=== PATIENT | male | born 1945 | race Caucasian/White ===

== ENCOUNTER 2016-12-23 00:14 | Inpatient (IN) | payer MEDICARE ==
[2016-12-23 00:46] LABS: BASOPHIL 0.6 % (0-2); EOSINOPHIL 2.4 % (0-7); HCT 31.3 % (42.0-52.0); HGB 10.5 g/dl (13.2-18.0); LYMPHOCYTE 21.6 % (15-48); MCH 32.1 pg (25.0-31.0); MCHC 33.5 g/dL (32.0-36.0); MCV 95.7 fL (78.0-100.0); MONOCYTE 11.1 % (0-12); MPV 9.3 fL (6.0-9.5); NEUTROPHIL 64.3 % (41-80); PLT 347 K/uL (150-400); RBC 3.27 M/uL (4.70-6.00); RDW 15.2 % (11.5-14.0)
[2016-12-23 00:51] LABS: INR 2.23 (0.9-1.2); PROTHROMBIN TIME 24.1 SECONDS (11.7-14.0)
[2016-12-23 00:52] LABS: PTT 40.1 SECONDS (23.2-31.4)
[2016-12-23 00:53] LABS: D-DIMER < 0.27 ug/mLFEU (0.00-0.41); LACTIC ACID 2.4 mmol/L (0.5-2.2)
[2016-12-23 00:56] LABS: ALBUMIN 3.9 g/dL (3.4-4.8); BILIRUBIN - TOTAL 0.2 mg/dL (0.1-1.0); CREATININE 0.8 mg/dL (0.7-1.2); GLOBULIN (CALCULATION) 2.7 g/dL (2.2-4.2); MAGNESIUM 1.74 mg/dL (1.40-2.10); POTASSIUM 3.2 mmol/L (3.5-5.1); TOTAL PROTEIN 6.6 g/dL (6.4-8.3)
[2016-12-23 01:01] LABS: CKMB 1.61 ng/mL (0.97-4.94); TROPONIN T < 0.010 ng/mL
[2016-12-23 01:02] LABS: MYOGLOBIN < 21 ng/mL (26-65); PRO-BNP 1120 pg/mL (0-125)
[2016-12-23 06:44] LABS: BASOPHIL 0 % (0-2); EOSINOPHIL 0 % (0-7); HCT 30.3 % (42.0-52.0); LYMPHOCYTE 2.8 % (15-48); MCH 31.7 pg (25.0-31.0); MCV 96.2 fL (78.0-100.0); MONOCYTE 1.1 % (0-12); PLT 312 K/uL (150-400); RBC 3.15 M/uL (4.70-6.00); RDW 15.1 % (11.5-14.0); WBC 7.2 K/uL (4.0-10.5)
[2016-12-23 06:46] LABS: NEUTROPHIL 96.1 % (41-80)
[2016-12-23 07:09] LABS: INR 2.84 (0.9-1.2); PROTHROMBIN TIME 29.1 SECONDS (11.7-14.0); PTT 57.5 SECONDS (23.2-31.4)
[2016-12-23 07:48] LABS: CKMB 2.32 ng/mL (0.97-4.94); TROPONIN T 0.027 ng/mL
[2016-12-23 08:24] LABS: ALBUMIN 3.7 g/dL (3.4-4.8); BILIRUBIN - TOTAL 0.2 mg/dL (0.1-1.0); CREATININE 0.9 mg/dL (0.7-1.2); GLOBULIN (CALCULATION) 2.2 g/dL (2.2-4.2); POTASSIUM 3.5 mmol/L (3.5-5.1); TOTAL PROTEIN 5.9 g/dL (6.4-8.3)
[2016-12-23 09:01] LABS: BILIRUBIN NEGATIVE (NEGATIVE); BLOOD NEGATIVE Ery/uL (NEGATIVE); CLARITY CLEAR (CLEAR); COLOR YELLOW (YELLOW); GLUCOSE (U) NORMAL (NORMAL); KETONE (U) NEGATIVE (NEGATIVE); LEUKOCYTES NEGATIVE Leu/uL (NEGATIVE); NITRITE NEGATIVE (NEGATIVE); PROTEIN NEGATIVE (NEGATIVE); SPECIFIC GRAVITY 1.025 (1.001-1.030); UROBILINOGEN 0.2 mg/dL (0.2-1.0)
[2016-12-23 09:15] LABS: BACTERIA TRACE
[2016-12-23 13:52] LABS: CKMB 2.78 ng/mL (0.97-4.94); TROPONIN T 0.027 ng/mL
[2016-12-24 04:08] LABS: HCT 29.7 % (42.0-52.0); HGB 9.8 g/dl (13.2-18.0); MCV 97.1 fL (78.0-100.0); MPV 9.1 fL (6.0-9.5); RBC 3.06 M/uL (4.70-6.00); RDW 15.5 % (11.5-14.0); WBC 9.2 K/uL (4.0-10.5)
[2016-12-24 05:15] LABS: CREATININE 0.9 mg/dL (0.7-1.2); POTASSIUM 4.1 mmol/L (3.5-5.1)
[2016-12-25 04:40] LABS: INR 4.98 (0.9-1.2); PROTHROMBIN TIME 45.3 SECONDS (11.7-14.0)
[2016-12-25 05:18] LABS: CREATININE 0.8 mg/dL (0.7-1.2); POTASSIUM 3.9 mmol/L (3.5-5.1)
[2016-12-25 08:15] LABS: BASOPHIL 0.1 % (0-2); EOSINOPHIL 0.4 % (0-7); HGB 9.4 g/dl (13.2-18.0); LYMPHOCYTE 17.3 % (15-48); MCH 32.1 pg (25.0-31.0); MCHC 32.4 g/dL (32.0-36.0); MONOCYTE 9.8 % (0-12); MPV 9.3 fL (6.0-9.5); NEUTROPHIL 72.4 % (41-80); PLT 295 K/uL (150-400); RBC 2.93 M/uL (4.70-6.00); RDW 15.8 % (11.5-14.0); WBC 7.3 K/uL (4.0-10.5)
[2016-12-26 05:01] LABS: INR 3.64 (0.9-1.2); PROTHROMBIN TIME 35.4 SECONDS (11.7-14.0)
[2016-12-26 05:06] LABS: CREATININE 0.6 mg/dL (0.7-1.2)
[2016-12-26] MEDS ORDERED: ASPIRIN81 MG PO (15:53)
[2016-12-26] MEDS ORDERED: MAG-OXIDE 400M400 MG PO (15:54)
[2016-12-26] MEDS ORDERED: DELTASONE20 MG PO (15:54)
[2016-12-26] MEDS ORDERED: ZESTORETIC 20-1 EACH PO (15:54)
[2016-12-26] MEDS ORDERED: PROTONIX 40MG T40 MG PO (15:54)
[2016-12-26] MEDS ORDERED: LACTINEX1 EACH PO ×2 (15:55→15:56)
[2016-12-26] MEDS ORDERED: NEURONTIN300 M1 PO (15:55)
[2016-12-26] MEDS ORDERED: COUMADIN5 MG PO (15:55)
[2016-12-26] MEDS ORDERED: LIPITOR20 MG PO (15:55)
[2016-12-26] MEDS ORDERED: CEFTIN250 MG PO (15:55)
[2016-12-26] MEDS ORDERED: PROVENTIL HFA6.7 GM INH (15:56)
[2016-12-26] MEDS ORDERED: BUMEX1 MG PO (15:56)
[2016-12-26] MEDS ORDERED: MICRO-K10 MEQ PO (15:57)
[2016-12-26] MEDS ORDERED: AZITHROMYCIN250 MG PO (15:58)
== END 2016-12-26 17:20 | disposition home or self-care (01) | DRG 291 ==
LOC: FER 00:14 → FICU 01:48 → FTCU 12-24 04:03
PROVIDERS: Emergency Medicine; Internal Medicine; Internal Medicine Cardiovascular Disease; ADMIT Internal Medicine Nephrology
DX: I11.0 Hypertensive heart disease with heart failure (principal); J96.01 Acute respiratory failure with hypoxia; E87.2 Acidosis; C34.91 Malignant neoplasm of unspecified part of right bronchus or lung; I50.31 Acute diastolic (congestive) heart failure; I48.0 Paroxysmal atrial fibrillation; E87.6 Hypokalemia; J20.9 Acute bronchitis, unspecified; E78.5 Hyperlipidemia, unspecified; Z96.652 Presence of left artificial knee joint; I45.10 Unspecified right bundle-branch block; Z83.3 Family history of diabetes mellitus; Z82.49 Family history of ischemic heart disease and other diseases of the circulatory system; Z90.2 Acquired absence of lung [part of]; Z82.3 Family history of stroke; Z81.8 Family history of other mental and behavioral disorders; Z92.21 Personal history of antineoplastic chemotherapy; Z87.891 Personal history of nicotine dependence; Z86.711 Personal history of pulmonary embolism; Z79.01 Long term (current) use of anticoagulants
CPT/HCPCS: 36415; 36600; 71010; 77412; 80048; 80053; 81001; 82550; 82553; 82803; 83605; 83735; 83874; 83880; 84145; 84484; 85025; 85379; 85610; 85730; 87040; 93005; 94640; 94664; J0456; J1170; J1940; J1956; J2930